=== PATIENT | male | born 1955 | race Caucasian/White ===

== ENCOUNTER 2017-09-16 21:12 | Emergency (ER) | payer MEDICARE ==
[2017-09-16 22:43] LABS: BASOPHILS 0.1 % (0-2); EOSINOPHILS 3.1 % (0-7); HEMATOCRIT 42.9 % (42.0-54.0); HEMOGLOBIN 14.6 g/dL (13.5-17.5); IMMATURE GRANULOCYTES 0.4 % (0-5); LYMPHOCYTES 13.2 % (15-50); MCH 31.9 pg (26.0-34.0); MCV 93.9 fL (80.0-100.0); MEAN PLATELET VOLUME 10.2 fL (7.4-10.4); MONOCYTES 9.1 % (2-11); NEUTROPHILS 74.1 % (40-80); PLATELET COUNT 269 10x3/uL (130-400); RBC 4.57 10x6/uL (4.20-6.10); RDW 13.9 % (11.5-14.5); WBC 18.4 10x3/uL (4.8-10.8)
[2017-09-16 22:57] LABS: ALBUMIN 2.9 g/dL (3.4-5.0); ALKALINE PHOSPHATASE 176 U/L (46-116); ALT (SGPT) 19 U/L (10-68); BILIRUBIN - TOTAL 0.23 mg/dL (0.2-1.3); CALC OSMOLALITY 280 mosm/kg (275-300); CALCIUM 8.9 mg/dL (8.5-10.1); CARBON DIOXIDE 30.3 mmol/L (21.0-32.0); CHLORIDE - SERUM 97 mmol/L (98-107); CREATININE - SERUM 0.7 mg/dL (0.6-1.3); GLUCOSE 287 mg/dL (74-106); PROTEIN - SERUM 7.2 g/dL (6.4-8.2); SODIUM 136 mmol/L (136-145); UREA NITROGEN 11 mg/dL (7-18); eGFR NON AFRICAN AMERICAN > 90 mL/min (90-120)
[2017-09-16 22:58] LABS: INR 1.06 (0.85-1.17); PROTIME 13.4 SECONDS (11.6-15.0)
== END 2017-09-16 23:55 | disposition home or self-care (01) ==
LOC: EDBD 21:12 → D.ER 21:12
PROVIDERS: Nurse Practitioner Family
DX: S91.312A Laceration without foreign body, left foot, initial encounter (principal); W45.8XXA Other foreign body or object entering through skin, initial encounter; Y93.89 Activity, other specified; Y92.019 Unspecified place in single-family (private) house as the place of occurrence of the external cause; E11.9 Type 2 diabetes mellitus without complications; Z79.4 Long term (current) use of insulin; I10 Essential (primary) hypertension

== ENCOUNTER → 2018-12-11 10:53 | Outpatient (CLI) | payer MEDICARE | END | disposition home or self-care (01) | LOC: D.RAD 10:53 | PROVIDERS: ATTEND Pain Medicine Interventional Pain Medicine | DX: M25.511 Pain in right shoulder (principal) ==